=== PATIENT | female | born 1980 | race Caucasian/White ===

== ENCOUNTER 2018-08-26 19:42 | Emergency (ER) | payer BC, OTHER ==
[~2018-08-26] VITALS: Ht 167.6 cm; Wt 83.5 kg
[2018-08-26 20:10] LABS: BILIRUBIN,URINE NEGATIVE (NEGATIVE); CLARITY,URINE CLOUDY; COLOR,URINE YELLOW; GLUCOSE, URINE (UA) NEGATIVE (NEGATIVE); KETONES,URINE TRACE (NEGATIVE); NITRITE,URINE NEGATIVE (NEGATIVE); PROTEIN,URINE TRACE (NEGATIVE); UROBILINOGEN,URINE 0.2 MG/DL (NORMAL)
[2018-08-26 20:11] LABS: BACTERIA,URINE 1+ /HPF; HYALINE CASTS, URINE 0-2 /LPF; LEUKOCYTE ESTERASE ,URINE TRACE (NEGATIVE); RBC,URINE 25-50 /HPF; SQUAMOUS EPITHELIAL CELL,UR 1+ /HPF
--- NOTE | 2018-08-26 20:34 | ED GU-Female ---
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 Patient states that the spotting started off small and a yellow/brown color. It has progressively gotten worse and she states that she now covers the toilet paper when she wipes. She describes the color as a watery dark red. Para 3, 2 Nursing Sepsis Screen: No Definite Risk Source: patient History of Present Illness Date Seen by Provider: Aug 26, 2018 Time Seen by Provider: 19:52 Initial Comments 38-year-old female presenting with complaints of vaginal spotting and bleeding. She is approximately 12/2 weeks with last menstrual period of May 12. She has estimated due date is March 15, 2019. She is a and follows with Dr. Cooney. She had an in office ultrasound on August 16 that showed positive heart tones. She states that she did have placenta previa with the approximately 12 years ago and had to be on bedrest for a month. She did deliver that without difficulty. She states that she is also having some pelvic cramping. This all started approximately 4 PM tonight. She last had sex about 4 days ago. His not doing anything this evening when she started having this bleeding. She states that she is noticing the blood when she was bathroom. She initially was having some dark brown discharge that now when she goes to the bathroom she has some watery red to pink colored blood on the tissue. She is not having bleeding between times of using the bathroom. She has not been having to use a pad in between going to the bathroom. She denies having any fever or chills. She's had no nausea or vomiting. Allergies and Home Medications Allergies Coded Allergies: codeine (Verified Allergy, Unknown, 08/26/18) Uncoded Allergies: BEEF (Allergy, Unknown, 08/26/18) MSG (Allergy, Unknown, 08/26/18) PORK (Allergy, Unknown, 08/26/18) Patient Home Medication List Home Medication List Reviewed: Yes Review of Systems Review of Systems Constitutional: see HPI EENTM: no symptoms reported Respiratory: no symptoms reported Cardiovascular: no symptoms reported Gastrointestinal: see HPI Genitourinary: see HPI Musculoskeletal: no symptoms reported Skin: no symptoms reported Psychiatric/Neurological: Anxiety (worried about the vaginal bleeding and her ) Past Llmnchf-Prgmdw-Yfgeic Hx Past Med/Social Hx: Reviewed Nursing Past Med/Soc Hx Patient Social History Alcohol Use: Denies Use Recreational Drug Use: No Smoking Status: Never a Smoker 2nd Hand Smoke Exposure: No Recent Foreign Travel: No Contact w/Someone Who Travel: No Recent Infectious Disease Expo: No Recent Hopitalizations: No Physical Abuse: No Sexual Abuse: No Mistreated: No Fear: No Immunizations Up To Date Tetanus Booster (TDap): Unknown Seasonal Allergies Seasonal Allergies: No Past Medical History Surgeries: Yes ([place] Teeth) Respiratory: No Cardiac: No Neurological: No : Yes Hx : 2 Hx Para: 3 Hx Total # of Abortions (Sp): 0 Female Reproductive Disorders: Denies Sexually Transmitted Disease: No HIV/AIDS: No Genitourinary: No Gastrointestinal: No Musculoskeletal: No Endocrine: No HEENT: No Cancer: No Psychosocial: No Integumentary: No Blood Disorders: No Physical Exam Vital Signs Vital Signs - First Documented 08/26/18 20:07 Temp 98.4 Pulse 107 Resp 24 B/P (MAP) 147/87 (107) Pulse Ox 100 O2 Delivery Room Air Capillary Refill : Less Than 3 Seconds Height, Weight, BMI Height: 5'6.00" Weight: 184lbs. 0oz. 83.909686qq; BMI Method:Stated General Appearance: WD/WN, moderate distress (worried about the vaginal bleeding and her ) HEENT: normal ENT inspection, pharynx normal Cardiovascular: normal peripheral pulses, regular rate, rhythm Respiratory: chest non-tender, lungs clear, normal breath sounds, no respiratory distress, no accessory muscle use Gastrointestinal: normal bowel sounds, non tender, soft, no pulsatile mass; No guarding, No rebound Rectal: deferred Pelvic: normal external exam, vaginal bleeding (blood and mucus present in the vaginal vault without active bleeding coming from the os. ) Extremities: normal range of motion, non-tender, normal inspection, no pedal edema Neurologic/Psychiatric: alert, oriented x 3 Skin: normal color, warm/dry Progress/Results/Core Measures Suspected Sepsis Recent Fever Within 48 Hours: No Infection Criteria Present: None New/Unexplained Altered Menta: No Sepsis Screen: No Definite Risk SIRS Temperature:98.4 Pulse: 107 Respiratory Rate: 24 Laboratory Tests 08/26/18 20:24: White Blood Count 9.8 Blood Pressure 147 /87 Mean: 107 Laboratory Tests 08/26/18 20:24: Platelet Count 252 Results/Orders Lab Results Laboratory Tests Test 08/26/18 19:50 08/26/18 20:24 Range/Units Urine Color YELLOW Urine Clarity CLOUDY Urine pH 6.0 5-9 Urine Specific [place] 1.025 H 1.016-1.022 Urine Protein TRACE H NEGATIVE Urine Glucose (UA) NEGATIVE NEGATIVE Urine Ketones TRACE H NEGATIVE Urine Nitrite NEGATIVE NEGATIVE Urine Bilirubin NEGATIVE NEGATIVE Urine Urobilinogen 0.2 NORMAL MG/DL Urine Leukocyte Esterase TRACE H NEGATIVE Urine RBC (Auto) 3+ H NEGATIVE Urine RBC 25-50 H /HPF Urine WBC 5-10 H /HPF Urine Squamous Epithelial Cells 1+ /HPF Urine Crystals NONE /LPF Urine Bacteria 1+ /HPF Urine Casts PRESENT /LPF Urine Hyaline Casts 0-2 H /LPF Urine Mucus MODERATE H /LPF Urine Culture Indicated YES White Blood Count 9.8 4.3-11.0 10^3/uL Red Blood Count 4.65 4.35-5.85 10^6/uL Hemoglobin 14.0 11.5-16.0 G/DL Hematocrit 41 35-52 % Mean Corpuscular Volume 89 80-99 FL Mean Corpuscular Hemoglobin 30 25-34 PG Mean Corpuscular Hemoglobin Concent 34 32-36 G/DL Red Cell Distribution Width 12.5 10.0-14.5 % Platelet Count 252 130-400 10^3/uL Mean Platelet Volume 9.1 7.4-10.4 FL Neutrophils (%) (Auto) 57 42-75 % Lymphocytes (%) (Auto) 33 12-44 % Monocytes (%) (Auto) 7 0-12 % Eosinophils (%) (Auto) 2 0-10 % Basophils (%) (Auto) 1 0-10 % Neutrophils # (Auto) 5.6 1.8-7.8 X 10^3 Lymphocytes # (Auto) 3.2 1.0-4.0 X 10^3 Monocytes # (Auto) 0.7 0.0-1.0 X 10^3 Eosinophils # (Auto) 0.2 0.0-0.3 10^3/uL Basophils # (Auto) 0.1 0.0-0.1 10^3/uL Human Chorionic Gonadotropin, Quant 5338 H <5 MIU/ML My Orders Orders - JOSEFA LOYA MD Ua Culture If Indicated (08/26/18 19:54) Urine Culture (08/26/18 19:50) Cbc With Automated Diff (08/26/18 20:15) Hcg,Quantitative (08/26/18 20:15) Terbutaline Injection (Brethine Injectio (08/26/18 21:35) Vital Signs/I&O 08/26/18 08/26/18 20:07 21:40 Temp 98.4 98.4 Pulse 107 107 Resp 24 18 B/P (MAP) 147/87 (107) 147/87 (107) Pulse Ox 100 99 O2 Delivery Room Air Room Air Capillary Refill : Less Than 3 Seconds Blood Pressure Mean: 107 Progress Note #1: Progress Note Check urinalysis and will perform a pelvic exam to evaluate where the bleeding is coming from. Will also try and obtain heart tones with Doppler. Ordering a quantitative hCG and a CBC. Will check in with Dr. Geiger after initiating these tests. Progress Note #2: Progress Note No definite evidence of infection on testing. the beta HCG level is 5338, UA shows blood but no definite infection. On attempts to find heart tones with Doppler I was unable to locate them. I also attempted to find him with a ultrasound used for fast scans on trauma patients that was unable to locate them. It looked like there was positive movement that it was hard to definitely identifiable fetus. Results were discussed with Dr. Geiger. He advised to give the patient a dose of terbutaline since she was still having cramping pain. He recommended getting an ultrasound and wanted to have the patient get that done on Tuesday. He recommended having return precautions reviewed with the patient for testing if she has worsening symptoms or bleeding and pain prior to Tuesday. Departure Impression Primary Impression: Vaginal bleeding in patient at less than 20 weeks gestation Disposition: 01 HOME, SELF-CARE Condition: Stable Departure-Patient Inst. Decision time for Depature: 21:29 Referrals: PRISCILLA GEIGER DO (PCP/Family) Primary Care Physician Patient Instructions: Bleeding With (DC) Add. Discharge Instructions: Pelvic and bed rest this weekend and drink plenty of water. Call the clinic Tuesday to get time to come in for ultrasound per Dr. Seals. If you have vaginal bleeding that saturates more than a pad an hour, increased pain, or fever over 101 F over the weekend then return or go to [facility] for ultrasound and further evaluation this weekend. May use Acetaminophen if needed for pain All discharge instructions reviewed with patient and/or family. Voiced understanding. JOSEFA LOYA MD Aug 26, 2018 20:34
[2018-08-26 20:41] LABS: HEMATOCRIT 41 % (35-52); MEAN CORPUSCULAR HEMOGLOBIN 30 PG (25-34); MEAN CORPUSCULAR HGB CONC 34 G/DL (32-36); MEAN CORPUSCULAR VOLUME 89 FL (80-99); RED CELL DISTRIBUTION WIDTH 12.5 % (10.0-14.5); WHITE BLOOD COUNT 9.8 10^3/uL (4.3-11.0)
[2018-08-26 20:42] LABS: BASOPHILS # (AUTO) 0.1 10^3/uL (0.0-0.1); BASOPHILS % (AUTO) 1 % (0-10); EOSINOPHILS # (AUTO) 0.2 10^3/uL (0.0-0.3); EOSINOPHILS % (AUTO) 2 % (0-10); LYMPHOCYTES # (AUTO) 3.2 X 10^3 (1.0-4.0); LYMPHOCYTES % (AUTO) 33 % (12-44); MEAN PLATELET VOLUME 9.1 FL (7.4-10.4); MONOCYTES # (AUTO) 0.7 X 10^3 (0.0-1.0); MONOCYTES % (AUTO) 7 % (0-12); NEUTROPHILS # (AUTO) 5.6 X 10^3 (1.8-7.8); NEUTROPHILS % (AUTO) 57 % (42-75); PLATELET COUNT 252 10^3/uL (130-400)
[2018-08-26] MEDS ORDERED: TERBUTALINE INJ 1 MG/ML (BRETHINE) AMP SC STA (21:35)
[2018-08-26 21:40] VITALS: BP 147/87
== END 2018-08-26 21:40 | disposition home or self-care (01) ==
LOC: ER FS 19:46
DX: O20.9 Hemorrhage in early pregnancy, unspecified (principal); Z3A.12 12 weeks gestation of pregnancy; Z88.5 Allergy status to narcotic agent
CPT/HCPCS: 36415; 81000; 84702; 85025; 87088; 99284